=== PATIENT | male | born 1965 | race Caucasian/White ===

== ENCOUNTER 2016-11-04 07:11 | Inpatient (IN) | payer OTHER ==
[2016-10-28 16:19] LABS: HEMATOCRIT 46.3 % (40.0-51.0); HEMOGLOBIN 16.7 g/dL (13.6-17.8)
[2016-10-28 16:38] LABS: BUN (BLOOD UREA NITROGEN) 22 MG/DL (6-23); CHLORIDE, SERUM 108 MMOL/L (96-112); CO2 (CARBON DIOXIDE) 27 MMOL/L (24-34); CREATININE 0.91 MG/DL (0.70-1.30); GFR AFRICAN AMERICAN 111 ML/MIN (>=60); GFR NON AFRICAN AMERICAN 96 ML/MIN (>=60); POTASSIUM, SERUM 3.9 MMOL/L (3.5-5.3); SODIUM, SERUM 142 MMOL/L (135-148)
[2016-10-28 16:40] LABS: GLUCOSE, SERUM 119 MG/DL (60-99)
--- NOTE | ~2016-11-04 | PREOPHP ---
PreOp History and Physical [facility] [address] [place]. [address] NAME: BASILIO CRANE : 61 STATUS : ADM IN PAT#: [id number] AGE: 51 ADM/REG DATE : 11/04/16 MR#: [id number] REPORT SERV DATE: 11/04/16 DICTATED BY: STEVEN TOLEDO DATE: 11/04/16 REPORT STATUS : Draft TRANSCRIBED BY: MODL DATE: 11/04/16 CHIEF COMPLAINT: Back pain and right leg pain. HISTORY OF PRESENT ILLNESS: A 51-year-old obese male who has had a microdiskectomy 3-4 years ago. He did well, done okay until recently has developed marked increase in pain in the right hip and leg. He does have some back pain as well. Plain x-rays reveal decreased disk height and a marked collapse of the disk space. MRI shows a large right ventral epidural deformity and the radiologist says it is suspicious for a large disk protrusion or synovial cyst. Because of the artifact from the prior surgery, he was unable to make a definitive diagnosis. The patient will require complete facetectomy in order to achieve removal of the right-sided epidural mass. Because of the complete facetectomy, the risk for instability is increased. Thus, we will re-stabilize with a transforaminal diskectomy, interbody cage, and posterior lateral interbody fusion. Posterior percutaneous instrumentation will complete the surgery. Prior to surgery, risks, benefits, alternatives, and expectations have been explained in great detail. Consent form has been signed. Also please note, because of the complexity of surgery, the need to identify the correct level of surgery and operate as well as desire to carry out the safest and most precise dissection with least amount of radiation exposure, I felt that intraoperative navigation was mandatory. PAST MEDICAL HISTORY: Exogenous obesity, hypertension, and osteoarthritis. PAST SURGICAL HISTORY: He had a lumbar diskectomy in 05/2014. He also had a knee arthroscopy and a partial meniscectomy in 01/2013. CURRENT MEDICATIONS: Lisinopril, tramadol and Robaxin as well as Mobic. ALLERGIES: NONE. SOCIAL HISTORY: He is . Nonsmoker. Does not use any alcohol. 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 FAMILY HISTORY: His mother had coronary artery disease. His brother had an CT. REVIEW OF SYSTEMS: He denies chest pain, pressure, or shortness of breath. He has some potential for sleep apnea, but has never been actually diagnosed. He denies any chest pain, pressure, or shortness of breath. Has normal bowel and bladder function. PHYSICAL EXAMINATION: VITAL SIGNS: He is 6 feet 3 inches and 320 pounds. GENERAL: He is alert, cooperative, well oriented. He ambulates independently. HEENT: Grossly normal. LUNGS: Clear to auscultation. HEART: Rate is regular and rhythmic. ABDOMEN: Soft with good bowel sounds. No peritoneal signs are noted. PreOp History and Physical [address] [address] NAME: BASILIO CRANE : 61 STATUS : ADM IN [facility]#: [id number] AGE: 51 ADM/REG DATE : 11/04/16 MR#: [id number] REPORT SERV DATE: 11/04/16 DICTATED BY: STEVEN TOLEDO DATE: 11/04/16 REPORT STATUS : Draft TRANSCRIBED BY: LIZANDRO DATE: 11/04/16 MUSCULOSKELETAL: The spine exam reveals no deformities. There is no abnormality of his old incision. He has very limited range of motion due to pain. He has difficulty with heel walking and toe walking because of pain. The patient has positive straight leg raise on the right at 50-60 degrees, it is negative on the left. His patella reflexes Achilles are absent. Sensory exam is grossly intact. Orthopedic exam reveals no pain with moving the hips, knees, or ankles. He has pulses in all four extremities. No abnormal skin lesions found. ASSESSMENT: 1. Herniated nucleus pulposus instability, right L4-L5. 2. Moderate central stenosis at L3-L4 not being treated as it does not appear as significant as the radiologist has described, and his symptoms seem to be mostly on the right hip and leg. It does not have symptoms of so much of neurogenic claudication. RECOMMENDATIONS: As listed above. PAULA/LIZANDRO Steven Toledo D.O. / [id number] CC: Demarcus Maldonado
--- NOTE | ~2016-11-04 | OP ---
Record Of Operation [facility] [address] [place]. [address] NAME: BASILIO CRANE : 61 STATUS : ADM IN PAT#: [id number] AGE: 51 ADM/REG DATE : 11/04/16 MR#: [id number] REPORT SERV DATE: 11/04/16 DICTATED BY: STEVEN TOLEDO DATE: 11/04/16 REPORT STATUS : Draft TRANSCRIBED BY: MODL DATE: 11/04/16 DATE OF PROCEDURE: PREOPERATIVE DIAGNOSES: 1. Large herniated nucleus polyposis, right L4-5 (recurrent). 2. Severe foraminal stenosis. 3. Severe disk degeneration at L4-5. POSTOPERATIVE DIAGNOSES: 1. Large herniated nucleus polyposis, right L4-5 (recurrent). 2. Severe foraminal stenosis. 3. Severe disk degeneration at L4-5. PROCEDURE: 1. Microscopic navigation-assisted surgery. 2. Right L4-5 hemilaminectomy, foraminotomy, facetectomy. 3. Transforaminal diskectomy. 4. Anterior interbody Capstone cage insertion. 5. Posterolateral interbody fusion with local bone graft and allograft. 6. Posterior percutaneous Voyager instrumentation. HOTEL GUEST SERVICE AGENT: Kristian Bello. ANESTHESIA: General. BLOOD LOSS: 50 mL. INDICATION FOR SURGERY: Indications for surgery and risks were explained. They are listed in the last office note as well as in the history and physical. See that for detail. DESCRIPTION OF PROCEDURE: Antibiotic prophylaxis was given. Neurophysiology monitoring leads were inserted. The patient was brought to the operative suite. General anesthetic including endotracheal intubation was administered. Mcknight catheter was placed with sterile technique. The patient was placed prone on a Dano spine frame. Bony prominences were carefully padded. Thoracolumbar spine was scrubbed with Hibiclens solution. DuraPrep was painted. Sterile drapes applied. A small stab wound was carried out at the left posterior-superior iliac spine. A percutaneous pin with navigational frame attached was inserted in PSIS. Intraoperative CT scan with O-arm obtained. CT information used to register the navigational system. With navigational assistance, I identified the L4-5 level. Just lateral to the facet joint, a 3 cm skin incision was carried out. A blunt navigated probe was placed through the fascia and muscle and docked over the facet joint. Muscle dilators were inserted followed by placement of a tubular retractor, attached to an arm mount on the table. The microscope was sterilely draped and used throughout the remainder of the procedure. Record Of Operation [facility] [address] [place]. [address] NAME: BASILIO CRANE : 61 STATUS : ADM IN PAT#: [id number] AGE: 51 ADM/REG DATE : 11/04/16 MR#: [id number] REPORT SERV DATE: 11/04/16 DICTATED BY: STEVEN TOLEDO DATE: 11/04/16 REPORT STATUS : Draft TRANSCRIBED BY: MODL DATE: 11/04/16 With navigational assistance, I identified the top of the pedicle of L5 and the inferior pedicle of L4. I dissected from lateral to medial removing the entire superior articular process of L5 down to the top of the pedicle, the inferior articular process of L4, and the remaining lamina and pars interarticularis of L4. Interestingly, the disk herniation on the right at L4-5 was a combination of soft disk and some calcification, but it was causing marked impingement on the thecal sac and the nerve root. This is very gently drilled away with a ever bur as well as removed with rongeurs. There was also a very large spondylotic bar causing impingement of the exiting L4 nerve root in the foramen. This was also debrided and it gave a significant relief of the pressure against the exiting L4 nerve root. A transforaminal diskectomy was carried out with curettes, rongeurs, and disk audrey. The wound was irrigated. A local bone graft was packed in the interbody space. A 9 mm Capstone cage was inserted through the transforaminal approach into the interbody space. Additional posterolateral interbody grafting was completed. The retractor was then removed after the exiting and traversing nerve roots were completely decompressed. I then on the left side carried out another 3 cm skin incision just lateral to the facet joint. We then percutaneously used a Voyager tap and screw lavatory attendant and we tapped the pedicles of L4 and 5 bilaterally. Polyaxial Voyager screws with screw extenders were inserted at L4 and 5 bilaterally. We then placed a 35 mm contoured captured lordotic alva through the top portion of the screw extenders, reduced the alva into the tulip of the pedicle screw, and the set screws inserted and tightened with a torque wrench providing rigid stability. Screw extenders were removed. Intraoperative CT scan with O-arm repeated showing excellent position of all implants. The wounds were irrigated. The standard wound closure was carried out. Sterile dressings applied to the wound. The patient returned to the supine position, awakened, extubated, and taken to recovery room in satisfactory condition having tolerated procedure well. Sponge, needle, and instrument counts were correct. No intraoperative complications noted. PAULA/LIZANDRO Steven Toledo D.O. / [id number] CC: Steven Toledo D.O.
[~2016-11-04 07:11] MED LIST: MOBIC15 MG PO; NORCO1 TA1 PO; PRIN20 PO; T3 PO; ULTRAM50 PO
[2016-11-04 14:21] LABS: BASOPHILS 0.1 %; BASOPHILS ABSOLUTE 0.01 10/3/uL (0.0-0.16); EOSINOPHILS 0.3 %; EOSINOPHILS ABSOLUTE 0.04 10/3/uL (0.0-0.53); HEMATOCRIT 44.4 % (40.0-51.0); HEMOGLOBIN 15.8 g/dL (13.6-17.8); IMMATURE GRANULOCYTES 0.5 %; IMMATURE GRANULOCYTES ABSOLUTE 0.08 10/3/uL (0.0-0.11); LYMPHOCYTES 16.3 %; LYMPHOCYTES ABSOLUTE 2.52 10/3/uL (0.67-4.30); MEAN CORPUS HGB CONC 35.6 g/dL (32.0-36.0); MEAN CORPUSCULAR HEMOGLOB 32.8 pg (26.0-34.0); MEAN CORPUSCULAR VOLUME 92.1 fL (80-100); MONOCYTES 1.6 %; MONOCYTES ABSOLUTE 0.25 10/3/uL (0.21-1.20); NEUTROPHILS 81.2 %; NEUTROPHILS ABSOLUTE 12.53 10/3/uL (2.02-8.40); PLATELET COUNT 222 10/3/uL (150-400); RBC DISTRIBUTION WIDTH 12.8 % (12.0-16.0); RED CELL COUNT 4.82 10/6/uL (4.7-6.1); WHITE BLOOD CELLS 15.4 10/3/uL (4.5-10.5)
[2016-11-04 14:22] LABS: MANUAL DIFF NO %
[2016-11-04 14:31] LABS: BUN (BLOOD UREA NITROGEN) 16 MG/DL (6-23); CALCIUM, SERUM 8.8 MG/DL (8.5-10.4); CHLORIDE, SERUM 107 MMOL/L (96-112); CO2 (CARBON DIOXIDE) 29 MMOL/L (24-34); CREATININE 1.02 MG/DL (0.70-1.30); GFR AFRICAN AMERICAN 97 ML/MIN (>=60); GFR NON AFRICAN AMERICAN 84 ML/MIN (>=60); GLUCOSE, SERUM 201 MG/DL (60-99); POTASSIUM, SERUM 3.8 MMOL/L (3.5-5.3); SODIUM, SERUM 140 MMOL/L (135-148)
[2016-11-05 04:33] LABS: BASOPHILS 0.1 %; BASOPHILS ABSOLUTE 0.01 10/3/uL (0.0-0.16); EOSINOPHILS 0 %; IMMATURE GRANULOCYTES 0.3 %; IMMATURE GRANULOCYTES ABSOLUTE 0.05 10/3/uL (0.0-0.11); LYMPHOCYTES 7.7 %; LYMPHOCYTES ABSOLUTE 1.21 10/3/uL (0.67-4.30); MEAN CORPUS HGB CONC 34.8 g/dL (32.0-36.0); MEAN CORPUSCULAR HEMOGLOB 32.7 pg (26.0-34.0); MEAN CORPUSCULAR VOLUME 93.9 fL (80-100); MEAN PLATELET VOLUME 10.2 fL (9.2-13.0); MONOCYTES 4.8 %; MONOCYTES ABSOLUTE 0.75 10/3/uL (0.21-1.20); NEUTROPHILS 87.1 %; NEUTROPHILS ABSOLUTE 13.66 10/3/uL (2.02-8.40); PLATELET COUNT 245 10/3/uL (150-400); RBC DISTRIBUTION WIDTH 12.6 % (12.0-16.0); WHITE BLOOD CELLS 15.7 10/3/uL (4.5-10.5)
[2016-11-05 04:38] LABS: MANUAL DIFF NO %
[2016-11-05 04:46] LABS: BUN (BLOOD UREA NITROGEN) 15 MG/DL (6-23); CALCIUM, SERUM 8.8 MG/DL (8.5-10.4); CHLORIDE, SERUM 105 MMOL/L (96-112); CO2 (CARBON DIOXIDE) 30 MMOL/L (24-34); CREATININE 0.93 MG/DL (0.70-1.30); GFR AFRICAN AMERICAN 108 ML/MIN (>=60); GFR NON AFRICAN AMERICAN 93 ML/MIN (>=60); GLUCOSE, SERUM 166 MG/DL (60-99); POTASSIUM, SERUM 4.4 MMOL/L (3.5-5.3); SODIUM, SERUM 141 MMOL/L (135-148)
[2016-11-05] MEDS ORDERED: OXYCOD PO (15:08)
[2016-11-05] MEDS ORDERED: METHOC750B PO (15:09)
== END 2016-11-05 16:19 | disposition home or self-care (01) | DRG 460 ==
LOC: SDC/OF 07:11 → PACU 14:00 → 3SO 15:09
PROVIDERS: Orthopaedic Surgery Orthopaedic Surgery of the Spine
PROC: 0SG00AJ Fusion of Lumbar Vertebral Joint with Interbody Fusion Device, Posterior Approach, Anterior Column, Open Approach (ICD-10-PCS; principal; 2016-11-04 09:15)
PROC: 0ST20ZZ Resection of Lumbar Vertebral Disc, Open Approach (ICD-10-PCS; 2016-11-04 09:15)
PROC: 0SG0071 Fusion of Lumbar Vertebral Joint with Autologous Tissue Substitute, Posterior Approach, Posterior Column, Open Approach (ICD-10-PCS; 2016-11-04 09:15)
PROC: 4A11X4G Monitoring of Peripheral Nervous Electrical Activity, Intraoperative, External Approach (ICD-10-PCS; 2016-11-04 09:15)
DX: M51.36 Other intervertebral disc degeneration, lumbar region (principal)
CPT/HCPCS: 36415; 80048; 82962; 85014; 85018; 85025; 86850; 86900; 86901; 87641; 88304; 88311; 93005; 97161-GP; A9270-GY; C1713; J0330; J0690; J1170; J1644; J2250; J2405; J2710; J3010